=== PATIENT | female | born 1980 | race African-American/Black ===

== ENCOUNTER 2017-05-30 13:09 | Emergency (ER) | payer OTHER ==
[2017-05-30] MEDS ORDERED: Ondansetron ODT 4 MG TAB ONE (13:53)
--- NOTE | 2017-05-30 14:51 | RAD ---
UPRIGHT PORTABLE CHEST ONE VIEW: History: 36-year-old female with cough, headache, and body aches. Comparison: 10-28-12 FINDINGS: Heart size is normal. The lungs are clear. IMPRESSION: No acute intrathoracic disease. Stable from prior study. POS: [facility]
== END 2017-05-30 14:46 | disposition home or self-care (01) ==
LOC: ERS 13:09
DX: J20.9 Acute bronchitis, unspecified (principal); E11.9 Type 2 diabetes mellitus without complications; I10 Essential (primary) hypertension; E78.5 Hyperlipidemia, unspecified; F31.9 Bipolar disorder, unspecified; F17.210 Nicotine dependence, cigarettes, uncomplicated; Z79.899 Other long term (current) drug therapy
CPT/HCPCS: 71010; Q0162

== ENCOUNTER 2019-08-02 08:33 | Outpatient (CLI) | payer OTHER ==
--- NOTE | 2019-08-02 09:06 | ULT ---
LEFT UPPER EXTREMITY VENOUS DOPPLER ULTRASOUND: HISTORY: Left arm pain and swelling TECHNIQUE: Grayscale color-flow and spectral Doppler imaging of the deep venous systems of the left upper extrem ity was performed FINDINGS: There is good flow, compression and normal spectral waveforms in the internal jugular, subclavian, ax illary, brachial, radial, ulnar, basilic and cephalic veins . IMPRESSION: No evidence of DVT in the left upper extremity.
--- NOTE | 2019-08-02 10:11 | RAD ---
LEFT SHOULDER THREE VIEWS: INDICATIONS: Left shoulder pain. COMPARISON: None. FINDINGS: No acute fracture or subluxation is evident. Glenohumeral alignment is within normal limits. The visu alized left lung is clear. IMPRESSION: No acute osseous abnormality. POS: [facility]
== END 2019-08-02 08:34 | disposition home or self-care (01) ==
LOC: BICULT 08:33
PROVIDERS: ATTEND Family Medicine
DX: M79.602 Pain in left arm (principal)